=== PATIENT | male | born 1965 | race Caucasian/White ===

== ENCOUNTER 2017-06-10 18:38 | Emergency (ER) | payer MEDICARE, MEDICAID ==
[~2017-06-10] VITALS: Ht 170.2 cm; Wt 75.0 kg
[~2017-06-10 18:38] MED LIST: TYLENOL
[2017-06-10 18:40] VITALS: BP 162/87
== END 2017-06-10 21:15 | disposition left against medical advice (07) ==
LOC: ER 18:47
DX: Z53.21 Procedure and treatment not carried out due to patient leaving prior to being seen by health care provider (principal); I10 Essential (primary) hypertension

== ENCOUNTER 2018-03-06 10:00 | Inpatient (IN) | payer MEDICARE, MEDICAID ==
[~2018-03-06] VITALS: Ht 180.3 cm; Wt 92.1 kg
[2018-03-06 10:49] LABS: BASOPHILS % 0.9 % (0.0-2.0); EOSINOPHILS % 0.7 % (0.0-5.0); HEMATOCRIT. 51.6 % (42.0-52.0); HEMOGLOBIN. 18.2 g/dL (14.0-18.0); LYMPHOCYTES % 21.1 % (20.0-50.0); MEAN CORPUSCULAR HEMOGLOBIN 31.6 pg (28.0-32.0); MEAN CORPUSCULAR VOLUME 89.6 fL (80.0-94.0); MEAN PLATELET VOLUME 7.8 fl (7.4-10.4); MONOCYTES % 6.2 % (2.0-8.0); NEUTROPHILS % 71.1 % (40.0-76.0); PLATELET 149 x1000/uL (130-400); RED BLOOD CELL COUNT 5.77 mill/uL (4.7-6.1); RED CELL DISTRIBUTION WIDTH 13.7 % (11.6-14.6)
[2018-03-06 10:58] LABS: INR 1.1; PROTHROMBIN TIME 11.3 sec (9.4-11.6)
[2018-03-06 10:59] LABS: CHLORIDE 98 mEq/L (98-107)
[2018-03-06] MEDS ORDERED: ASPIRIN 325MG EC TABLET PO ONE (11:00)
[2018-03-06] MEDS ORDERED: LABETALOL HCL 20MG/4ML CARPUJECT IV PRN (11:15)
[2018-03-06] MEDS ORDERED: HYDROCODONE/ACETAMINOPHEN 5/325MG TABLET PO ONE (11:15)
[2018-03-06] MEDS: LABETALOL 5MG/ML SYR 20 MG/4 ML SYRINGE IV PRN ×3 (11:36→12:17)
[2018-03-06] MEDS ORDERED: LABETALOL 5MG/ML SYR 20 MG/4 ML SYRINGE IV PRN (11:45)
[2018-03-06 13:05] VITALS: BP 153/100
[2018-03-06 13:45] VITALS: BP 153/100
[2018-03-06] MEDS ORDERED: ONDANSETRON HCL 4MG/2ML VIAL IV PRN (13:45)
[2018-03-06] MEDS ORDERED: ACETAMINOPHEN 650MG SUPP PR PRN (13:45)
[2018-03-06] MEDS ORDERED: IPRATROPIUM/ALBUTEROL 0.5-3(2.5)MG/3ML NEB INH PRN (13:45)
[2018-03-06] MEDS ORDERED: DEXTROSE 50% WATER 50ML SYRINGE IV PRN (13:45)
[2018-03-06] MEDS ORDERED: ACETAMINOPHEN 325MG TABLET PO PRN (13:45)
[2018-03-06] MEDS ORDERED: ACETAMINOPHEN 650MG/20.3ML UDC GT PRN (13:45)
[2018-03-06] MEDS ORDERED: DOCUSATE SODIUM 100MG CAPSULE PO PRN (13:45)
[2018-03-06] MEDS ORDERED: DIPHENHYDRAMINE 50MG/ML VIAL IV PRN (13:45)
[2018-03-06] MEDS ORDERED: MAGNESIUM/ALUMINUM HYDROXIDE/SIMETHICONE 30ML UDC PO PRN (13:45)
[2018-03-06] MEDS ORDERED: POTASSIUM CHLORIDE 20MEQ TABLET SR PO NR (13:45)
[2018-03-06] MEDS ORDERED: CLONIDINE 0.1MG TABLET PO PRN (13:45)
[2018-03-06] MEDS ORDERED: NA PHOS,M-B/NA PHOS,DI-BA ENEMA 118ML PR PRN (13:45)
[2018-03-06] MEDS ORDERED: HYDROCODONE/ACETAMINOPHEN 5/325MG TABLET PO PRN (13:45)
[2018-03-06] MEDS: SODIUM CHLORIDE 0.9% INJ 3ML FLUSH IVF SCH ×2 (14:00→21:18)
[2018-03-06] MEDS: ENOXAPARIN 40MG/0.4ML SYR SUBCUT SCH (14:35)
[2018-03-06] MEDS: LISINOPRIL 20MG TABLET PO SCH (14:39)
[2018-03-06] MEDS: AMLODIPINE 10MG TABLET PO SCH (14:40)
[2018-03-06 16:32] LABS: LDL CHOLESTEROL 157 mg/dL (5-100)
[2018-03-06 16:33] LABS: CREATINE KINASE 63 IU/L (39-308)
[2018-03-06 16:34] LABS: HDL CHOLESTEROL 53 mg/dL (40-59)
[2018-03-06 16:36] LABS: CREATINE KINASE MB FRACTION < 0.5 ng/mL (0.5-3.6)
[2018-03-06 16:53] VITALS: BP 165/97
[2018-03-06] MEDS: BLOOD SUGAR DIAGNOSTIC STRIP TEST SCH ×2 (17:23→21:18)
[2018-03-06 17:32] LABS: CLARITY URINE CLEAR (CLEAR); COLOR URINE YELLOW (YELLOW); KETONES URINE NEGATIVE (NEGATIVE); LEUKOCYTE ESTERASE URINE NEGATIVE (NEGATIVE); NITRITE URINE NEGATIVE (NEGATIVE); OCCULT BLOOD URINE NEGATIVE (NEGATIVE); PROTEIN URINE NEGATIVE (NEGATIVE); SPECIFIC GRAVITY URINE 1.026 (1.005-1.030); UROBILINOGEN URINE 0.2 E.U./dL (0.2-1.0)
[2018-03-06] MEDS: INSULIN LISPRO 100 UNITS/ML SUBCUT SCH ×2 (17:55→21:25)
[2018-03-06 17:59] LABS: *AMPHETAMINES SCREEN URINE NEGATIVE (NEGATIVE)
[2018-03-06 18:00] LABS: *BARBITURATES SCREEN URINE NEGATIVE (NEGATIVE); *BENZODIAZEPINES SCREEN URINE NEGATIVE (NEGATIVE); *COCAINE SCREEN URINE NEGATIVE (NEGATIVE)
[2018-03-06 18:01] LABS: CANNABINOID URINE SCREEN NEGATIVE (NEGATIVE); METHADONE URINE SCREEN NEGATIVE (NEGATIVE); OPIATES URINE SCREEN PRESUMTIVE POSITIVE (NEGATIVE); PHENCYCLIDINE URINE SCREEN NEGATIVE (NEGATIVE)
[2018-03-06 20:00] VITALS: BP 124/83
[2018-03-07] VITALS: BP 102/65
[2018-03-07] MEDS ORDERED: ATORVASTATIN CALCIUM 10MG TABLET PO SCH
[2018-03-07 00:03] LABS: CREATINE KINASE 67 IU/L (39-308)
[2018-03-07 00:04] LABS: CREATINE KINASE MB FRACTION < 0.5 ng/mL (0.5-3.6)
[2018-03-07 04:00] VITALS: BP 122/80
[2018-03-07 05:52] LABS: BASOPHILS % 1.2 % (0.0-2.0); EOSINOPHILS % 1.1 % (0.0-5.0); HEMATOCRIT. 50.4 % (42.0-52.0); HEMOGLOBIN. 17.8 g/dL (14.0-18.0); LYMPHOCYTES % 33.2 % (20.0-50.0); MEAN CORPUSCULAR HEMOGLOBIN 31.7 pg (28.0-32.0); MEAN CORPUSCULAR VOLUME 89.9 fL (80.0-94.0); MEAN PLATELET VOLUME 7.7 fl (7.4-10.4); MONOCYTES % 9.5 % (2.0-8.0); PLATELET 145 x1000/uL (130-400); RED BLOOD CELL COUNT 5.61 mill/uL (4.7-6.1); RED CELL DISTRIBUTION WIDTH 14.1 % (11.6-14.6)
[2018-03-07 06:04] LABS: CHLORIDE 105 mEq/L (98-107)
[2018-03-07] MEDS: SODIUM CHLORIDE 0.9% INJ 3ML FLUSH IVF SCH ×2 (06:12→13:06)
[2018-03-07 06:13] LABS: LDL CHOLESTEROL 138 mg/dL (5-100)
[2018-03-07 06:15] LABS: HDL CHOLESTEROL 43 mg/dL (40-59)
[2018-03-07] MEDS: BLOOD SUGAR DIAGNOSTIC STRIP TEST SCH ×3 (07:40→17:40)
[2018-03-07 08:00] VITALS: BP 125/81
[2018-03-07] MEDS ORDERED: ASPIRIN 81MG EC TABLET PO SCH (09:00)
[2018-03-07] MEDS ORDERED: METOPROLOL TARTRATE 25MG TABLET PO SCH (09:00)
[2018-03-07] MEDS: AMLODIPINE 10MG TABLET PO SCH (09:00)
[2018-03-07] MEDS: METFORMIN HCL 500MG TABLET PO SCH ×2 (09:30→18:48)
[2018-03-07] MEDS: LISINOPRIL 20MG TABLET PO SCH (09:31)
[2018-03-07] MEDS: INSULIN LISPRO 100 UNITS/ML SUBCUT SCH ×3 (09:46→18:53)
[2018-03-07 12:00] VITALS: BP 115/64
[2018-03-07] MEDS: ENOXAPARIN 40MG/0.4ML SYR SUBCUT SCH (13:06)
[2018-03-07 16:00] VITALS: BP 110/74
[2018-03-07] MEDS ORDERED: METO25TA6 PO (17:55)
[2018-03-07] MEDS ORDERED: LISI-604 PO (17:55)
[2018-03-07] MEDS ORDERED: AMLO10TA80 PO (17:55)
[2018-03-07] MEDS ORDERED: ASPI-1158 PO (17:55)
[2018-03-07] MEDS ORDERED: METF500T PO (17:55)
[2018-03-07] MEDS ORDERED: LIP40 PO (17:55)
[2018-03-07 19:04] VITALS: BP 110/74
[2018-03-07] MEDS ORDERED: ATORVASTATIN CALCIUM 40MG TABLET PO SCH (21:00)
== END 2018-03-07 19:28 | disposition home or self-care (01) | DRG 305 ==
LOC: ER 10:00 → 7WST 11:24 → ENRESERV 11:48
PROVIDERS: ADMIT Family Medicine; ATTEND Family Medicine
DX: I16.0 Hypertensive urgency (principal); E11.9 Type 2 diabetes mellitus without complications; R07.89 Other chest pain; E78.5 Hyperlipidemia, unspecified; F41.9 Anxiety disorder, unspecified; I10 Essential (primary) hypertension; Z79.899 Other long term (current) drug therapy; Z79.82 Long term (current) use of aspirin
CPT/HCPCS: 36415; 71045; 80048; 80053; 80061; 80305; 81003; 82550; 82553; 82962; 83036; 83880; 84443; 84484; 85025; 85610; 93005; 93306; 96374; 99285; J1650; J1815; J3490

== ENCOUNTER 2022-08-10 11:15 | Emergency (ER) | payer MEDICAID, MEDICARE ==
[~2022-08-10] VITALS: Ht 167.6 cm; Wt 78.0 kg
[~2022-08-10 11:15] MED LIST changes: +AMLO10TA80 PO; +ASPI-1406 PO; +LIP40 PO; +LISI20TA31 PO; +METF500T PO; +METO25TA6 PO; -TYLENOL
[2022-08-10 12:32] LABS: CHLORIDE 100 mEq/L (98-107)
[2022-08-10 12:41] LABS: BASOPHILS % 0.9 % (0.0-2.0); EOSINOPHILS % 0.2 % (0.0-5.0); HEMATOCRIT. 50.3 % (42.0-52.0); HEMOGLOBIN. 17.4 g/dL (14.0-18.0); LYMPHOCYTES % 10.9 % (20.0-50.0); MEAN CORPUSCULAR HEMOGLOBIN 31.2 pg (28.0-32.0); MEAN CORPUSCULAR VOLUME 90.1 fL (80.0-94.0); MEAN PLATELET VOLUME 7.4 fl (7.4-10.4); MONOCYTES % 5.5 % (2.0-8.0); NEUTROPHILS % 82.5 % (40.0-76.0); PLATELET 176 x1000/uL (130-400); RED BLOOD CELL COUNT 5.59 mill/uL (4.7-6.1); RED CELL DISTRIBUTION WIDTH 13.7 % (11.6-14.6)
[2022-08-10] MEDS ORDERED: ACETAMINOPHEN 325MG TABLET PO ONE (13:00)
[2022-08-10] MEDS ORDERED: METOCLOPRAMIDE HCL 10MG/2ML VIAL IV ONE (13:00)
[2022-08-10] MEDS ORDERED: DIPHENHYDRAMINE 50MG/ML VIAL IV ONE (13:00)
[2022-08-10] MEDS ORDERED: SODIUM CHLORIDE 0.9% 1,000 ML IV ONE (13:00)
[2022-08-10 13:26] LABS: CHLORIDE 98 mEq/L (98-107)
[2022-08-10 17:11] VITALS: BP 160/87
== END 2022-08-10 19:22 | disposition home or self-care (01) ==
LOC: ER 11:26
DX: I10 Essential (primary) hypertension (principal); R51.9 Headache, unspecified; Z79.82 Long term (current) use of aspirin
CPT/HCPCS: 36415; 70450; 80053; 85025; 85651; 93005; 96361; 96374; 96375; 99285; J1200; J2765; J7030